=== PATIENT | female | born 1965 | race Caucasian/White ===

== ENCOUNTER 2022-03-09 10:49 | Outpatient (CLI) | payer OTHER, SELFPAY ==
--- NOTE | 2022-03-09 11:03 | US_ITS ---
WS: [id number] TRANSABDOMINAL PELVIC AND TRANSVAGINAL PELVIC ULTRASOUND HISTORY: ASYMPTOMATIC MICROSCOPIC HEMATURIA COMPARISON: None available. Uterus: 8.9 cm x 5.0 cm x 3.5 cm. Normal size anteverted uterus. No fibroid or mass. Endometrium: 0.3 cm. No mass. Right ovary: 1.8 cm x 1.3 cm x 0.8 cm. Small caliber ovary. No mass. Normal vascularity. Left ovary: Not identified. No adnexal mass. No free fluid. US/US pelvic with transvaginal IMPRESSION: 1. No fibroid. 2. LEFT ovary not identified.
== END 2022-03-09 10:50 | disposition home or self-care (01) ==
LOC: RAD 10:51
PROVIDERS: PCP Nurse Practitioner; Visit Provider Nurse Practitioner
DX: R10.2 Pelvic and perineal pain (principal); R31.21 Asymptomatic microscopic hematuria
CPT/HCPCS: 76830; 76856; 81003; 87086

== ENCOUNTER → 2022-04-24 09:29 | Outpatient (BNVA) | payer OTHER, SELFPAY | PROVIDERS: PCP Nurse Practitioner; Visit Provider Urology | DX: N30.90 Cystitis, unspecified without hematuria (principal) | CPT/HCPCS: 81003 ==

== ENCOUNTER 2022-05-06 07:57 | Outpatient (CLI) | payer OTHER, SELFPAY ==
--- NOTE | 2022-05-06 08:05 | CT_ITS ---
WS: [id number] CT ABDOMEN AND PELVIS WITH CONTRAST HISTORY: LEFT LOWER QUADRANT PAIN TECHNIQUE: Imaging performed of the abdomen and pelvis with IV contrast. Single phase imaging of the abdomen. Coronal and sagittal reformats are submitted. All CT scans at [facility] use at [address] one of these dose optimization techniques: automated exposure control; mA and/or kV adjustment per patient size (includes targeted exams where dose is matched to clinical indication); or iterative re construction. IV CONTRAST: Omnipaque 350; 95 mL IV. Oral contrast: Yes. DLP: 1054.52 mGy.cm COMPARISON: None available. Lower thorax: Lung bases are clear. Heart is normal size. No hiatal hernia. Liver/biliary system: Normal size liver. 9 mm cyst medial lower RIGHT lobe. Normal portal vein. Gallbladder: Normal. No gallstones or wall thickening. No pericholecystic fluid. Pancreas: Normal size pancreas and pancreatic duct. No adjacent inflammation. Spleen: Normal size spleen. No mass or infarct. Adrenal glands: Normal. Right kidney: Normal size kidney. Normal enhancement. There are a few very small scattered hypodensit ies throughout the kidney which are too small to characterize. Left kidney: Normal size kidney. No hydronephrosis. There are several small hypodensities scattered t hroughout the kidney which are too small to characterize. Aorta: Mild atherosclerosis with no aneurysm. Lymphadenopathy: None. Free fluid: None. GI tract: Gas-distended stomach. No small bowel obstruction. Prior appendectomy. Negative colon. Abdominal wall: Defect in the RIGHT lateral abdominal wall near the iliac crest. There is a defect al rachael the lateral border of the LEFT rectus abdominis muscle and extending through the oblique muscles. There is a small amount of fat protruding through the defect. The orifice measures 15 mm. There is a loop of small bowel closely associated with the orifice. Pelvis: No free fluid or adenopathy within the pelvis. Bones: Unremarkable. CT/CT abdomen pelvis w con* [id number] IMPRESSION: 1. LEFT abdominal wall spigelian hernia. Omental fat protrudes through the her qi orifice. Orifice measures 15 mm. There is a loop of small bowel closely ass ociated with the orifice but no herniation of GI tract at this time. 2. Hepatic cysts. 3. Too small to characterize hypodensities within each kidney. 4. Prior appendectomy.
[2022-05-06] MEDS: barium sulfate 450 mL Oral Susp PO (08:56)
[2022-05-06] MEDS: iohexol 350 mg/mL 100 mL Btl IV (09:28)
== END 2022-05-06 07:58 | disposition home or self-care (01) ==
PROVIDERS: PCP Nurse Practitioner; Visit Provider Nurse Practitioner Family
DX: R10.32 Left lower quadrant pain (principal); K43.9 Ventral hernia without obstruction or gangrene; K76.89 Other specified diseases of liver; Q42.8 Congenital absence, atresia and stenosis of other parts of large intestine
CPT/HCPCS: 74177

== ENCOUNTER → 2022-10-27 10:16 | Outpatient (BNVA) | payer OTHER, MEDICAID, SELFPAY | PROVIDERS: PCP Nurse Practitioner Family; Visit Provider Urology | DX: N30.90 Cystitis, unspecified without hematuria (principal) | CPT/HCPCS: 81003 ==

== ENCOUNTER 2022-11-09 07:48 | Outpatient (CLI) | payer MEDICAID, SELFPAY ==
--- NOTE | 2022-11-09 08:04 | US_ITS ---
WS: [id number] THYROID ULTRASOUND (TI-RADS CRITERIA) HISTORY: HX OF THYROID NODULE/WELLNESS EXAM COMPARISON: None available. Right lobe: 1.9 cm x 1.7 cm x 5.2 cm (w x ap x l). Volume: 8.7 cm3. Normal size thyroid gland. Hypoechoic round nodule in the mid gland measures 1.0 x 0.8 x 1.0 cm. Ther e are a few scattered small cysts within the gland. No increased vascularity or echogenic foci. The m argins are smooth. Left lobe: 2.0 cm x 1.7 cm x 5.9 cm (w x ap x l). Volume: 10.4 cm3. Very mildly enlarged gland. Mixed cystic and solid nodule in the mid gland measures 1.4 x 1.4 x 1.8 c m. Nodule is slightly taller than wide. Margins are smooth. Mild increased vascularity. Isthmus: 0.3 cm. US/US thyroid [id number] IMPRESSION: 1. Mid LEFT thyroid nodule (TI-RADS 4). Consider ultrasound-guided FNA of the solid component. 2. Benign appearing RIGHT thyroid nodule.
== END 2022-11-09 07:49 | disposition home or self-care (01) ==
PROVIDERS: PCP Nurse Practitioner Family; Visit Provider Nurse Practitioner Family
DX: E04.1 Nontoxic single thyroid nodule (principal); Z86.39 Personal history of other endocrine, nutritional and metabolic disease
CPT/HCPCS: 76536